=== PATIENT | female | born 1970 | race Caucasian/White ===

== ENCOUNTER 2021-01-19 00:59 | Emergency (ER) | payer BC ==
[~2021-01-19] VITALS: Ht 170.2 cm; Wt 99.8 kg
[2021-01-19] MEDS ORDERED: PREDNISONE50 MG PO (02:15)
[2021-01-19 02:45] VITALS: BP 168/77
== END 2021-01-19 02:45 | disposition home or self-care (01) | DRG 607 ==
LOC: ED 00:59
DX: L50.9 Urticaria, unspecified (principal)